=== PATIENT | female | born 1975 | race American Indian/Alaskan Native ===

== ENCOUNTER 2016-11-04 23:05 | Emergency (ER) | payer OTHER ==
--- NOTE | 2016-11-05 08:55 | Emergency Department Report ---
HPI - General Chief Complaint: Extremity Injury, Lower Time Seen by Provider: 11/05/16 08:47 - HPI HPI: Chief complaint: Left leg pain HPI: Patient is a 41-year-old female who underwent a hysterectomy and salpingectomy in August of last year. Patient states she started back at work on Saturday and has been having left lower leg pain and swelling for the last week. Patient denies any chest pain or shortness breath or previous history of a blood clot. Mode of arrival: private car Source: Patient Began: One week ago Duration: Continuous Context: See above Quality: Dull Severity: 10 out of 10 Improved with: Nothing Worsened with: Standing Associated signs and symptoms: Pain and swelling. No fever or erythema ED Past Medical Hx - Past Medical History Previous Medical History?: Yes Hx Headaches / Migraines: Yes (migraines) Hx Asthma: Yes (last neb 2 weeks ago) - Surgical History Additional Surgical History: Left foot sugery January-Torn Tendon, hysterectomy - Social History Smoking Status: Former Smoker - Medications Home Medications: Home Medications Medication Instructions Recorded Confirmed Last Taken Type ALBUTEROL NEB's [Proventil] 2.5 mg IH TID PRN 09/07/16 09/12/16 09/12/16 05:00 History Topiramate [Topamax] 100 mg PO DAILY 09/07/16 09/12/16 09/11/16 History Ferrous Sulfate [Feosol 325 MG tab] 325 mg PO BID #60 tablet 09/12/16 Unknown Rx Ibuprofen [Motrin 800 MG tab] 800 mg PO Q6H PRN #30 tablet 09/12/16 Unknown Rx oxyCODONE /ACETAMINOPHEN [Percocet 1 - 2 tab PO Q4H PRN #30 tablet 09/12/16 Unknown Rx 5/325 mg] traMADol [Ultram 50 MG tab] 50 mg PO Q6HR PRN #14 tablet 11/05/16 Unknown Rx ED Review of Systems ROS: Stated complaint: L LEG PAIN Other details as noted in HPI ROS Constitutional: No fever ENT: No uri symptoms Cardiovascular: No chest pain Respiratory: No sob or cough GI: No nausea vomiting or diarrhea : No dysuria frequency or urgency, Skin: No rash Neuro: No focal weakness or numbness Psych: No depression Lazaro/lymph: See HPI Physical Exam - Physical Exam Vital Signs: Vital Signs 11/05/16 01:47 Temperature 98.5 F Pulse Rate 84 Respiratory 18 Rate Blood Pressure 139/97 O2 Sat by Pulse 100 Oximetry Physical Exam: GENERAL: The patient is well-developed well-nourished . HEENT: Normocephalic. Atraumatic. Extraocular motions are intact. Patient has moist mucous membranes. NECK: Normal inspection CHEST/LUNGS: Clear to auscultation. There is no respiratory distress noted. HEART/CARDIOVASCULAR: Regular. There is no tachycardia. There is no gallop rub or murmur. ABDOMEN: Abdomen is soft, nontender. Patient has normal bowel sounds. There is no abdominal distention. SKIN: There is no rash. There is no edema. There is no diaphoresis. There is no erythema. NEURO: The patient is awake, alert, and oriented. The patient is cooperative. The patient has no focal neurologic deficits. The patient has normal speech. MUSCULOSKELETAL: There is tenderness and swelling to the left lower extremity. There is no limitation range of motion. There is no evidence of acute injury. ED Course Vital Signs 11/05/16 01:47 Temperature 98.5 F Pulse Rate 84 Respiratory 18 Rate Blood Pressure 139/97 O2 Sat by Pulse 100 Oximetry ED Medical Decision Making - Radiology Data Radiology results: report reviewed (Doppler left lower extremity shows no signs of DVT.) Critical care attestation.: If time is entered above; I have spent that time in minutes in the direct care of this critically ill patient, excluding procedure time. ED Disposition Clinical Impression: Left leg pain Disposition: DISCHARGED TO HOME OR SELFCARE Is pt being admited?: No Does the pt Need Aspirin: No Condition: Stable Instructions: Leg Edema (ED) Additional Instructions: Recommend wearing support hose when standing on her feet for long periods of time and keep your feet. Follow-up with your primary care doctor if pain and swelling persist as she may need a repeat ultrasound if the pain and swelling persists. Prescriptions: traMADol [Ultram 50 MG tab] 50 mg PO Q6HR PRN #14 tablet PRN Reason: Pain Referrals: PRIMARY CARE, [Primary Care Provider] - 3-5 Days Time of Disposition: 09:38
[2016-11-05 09:50] VITALS: BP 114/63
--- NOTE | 2016-11-06 09:42 | Vascular Lab Report ---
Left Lower Extremity Venous Duplex Study: Reason for Exam: Left leg pain. Comments on the Right: A limited duplex study was done of the proximal veins of the right lower extremity. All veins visualized are freely compressible without evidence of internal echogenicity. Flow is spontaneous and phasic throughout. No evidence of acute or chronic thrombus is seen in any of the vessels visualized. Comments on the Left: All veins visualized are freely compressible without evidence of internal echogenicity. Flow is spontaneous and phasic throughout. No evidence of acute or chronic thrombus is seen in any of the vessels visualized. Impression: No evidence of acute or chronic deep venous thrombosis in the left lower extremity.
== END 2016-11-05 10:00 | disposition home or self-care (01) ==
LOC: ED 23:05
DX: M79.605 Pain in left leg (principal); G43.909 Migraine, unspecified, not intractable, without status migrainosus; J45.909 Unspecified asthma, uncomplicated; Z87.891 Personal history of nicotine dependence

== ENCOUNTER 2017-02-20 11:03 | Outpatient (CLI) | payer OTHER ==
--- NOTE | 2017-02-20 12:58 | XRay Report ---
LEFT HIP 2 VIEWS: 02/20/17 11:03:00 CLINICAL: Left hip pain. FINDINGS: Bilateral superolateral joint space narrowing with superior acetabular eburnation and bilateral superolateral osteophytes. No fracture or dislocation. Normal femoral head contours. The pelvic bones and SI joints are intact. Normal soft tissues. IMPRESSION: Moderate bilateral hip osteoarthritis.
== END 2017-02-20 11:04 | disposition home or self-care (01) ==
LOC: SPVIMAG 11:03
PROVIDERS: ATTEND Internal Medicine
DX: M16.0 Bilateral primary osteoarthritis of hip (principal); M25.78 Osteophyte, vertebrae

== ENCOUNTER 2017-10-07 15:29 | Emergency (ER) | payer OTHER ==
[2017-10-07 15:38] VITALS: BP 130/81
[2017-10-07] MEDS ORDERED: MOTRIN PO ONE (16:48)
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
== END 2017-10-07 17:56 | disposition home or self-care (01) ==
LOC: ED 15:29
DX: S13.4XXA Sprain of ligaments of cervical spine, initial encounter (principal); G43.909 Migraine, unspecified, not intractable, without status migrainosus; Z88.0 Allergy status to penicillin; V89.2XXA Person injured in unspecified motor-vehicle accident, traffic, initial encounter; Y93.89 Activity, other specified; Y92.89 Other specified places as the place of occurrence of the external cause; Y99.8 Other external cause status
CPT/HCPCS: 99282

== ENCOUNTER 2017-10-18 09:19 | Emergency (ER) | payer SELFPAY ==
[2017-10-18] MEDS ORDERED: NORCO 5/325 PO ONE (11:12)
--- NOTE | 2017-10-18 11:43 | XRay Report ---
RIGHT SHOULDER, 3 VIEWS: HISTORY: right shoulder pain. Normal bone mineralization. No acute osseous injury or joint pathology is detected. The soft tissues are unremarkable. IMPRESSION: Right shoulder within normal limits.
--- NOTE | 2017-10-18 11:47 | Emergency Department Report ---
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) Improves With: none Worsens With: movement of extremity Context: other (lifting) Associated Symptoms: denies other symptoms - Related Data Previous Rx's Medication Instructions Recorded Last Taken Type Naproxen Sodium [Aleve TAB] 220 mg PO BID PRN #12 tablet 10/18/17 Unknown Rx traMADol [Ultram] 50 mg PO Q6HR PRN #10 tablet 10/18/17 Unknown Rx Allergies Allergy/AdvReac Type Severity Reaction Status Date / Time Penicillins Allergy Hives Verified 09/07/16 11:32 ED Review of Systems ROS: Stated complaint: R SHOULDER PAIN Other details as noted in HPI Comment: All other systems reviewed and negative Musculoskeletal: other (r shoulder pain p lifting pt at work yest) ED Past Medical Hx - Past Medical History Hx Hypertension: No Hx Heart Attack/AMI: No Hx Congestive Heart Failure: No Hx Diabetes: No Hx Renal Disease: No Hx Headaches / Migraines: Yes (migraines) Hx Seizures: No Hx Asthma: Yes (last neb 2 weeks ago) Hx COPD: No - Surgical History Additional Surgical History: Left foot sugery January-Torn Tendon, hysterectomy. RT SHOULDER 12/2016 - Social History Smoking Status: Never Smoker Substance Use Type: Alcohol - Medications Home Medications: Home Medications Medication Instructions Recorded Confirmed Last Taken Type Naproxen Sodium [Aleve TAB] 220 mg PO BID PRN #12 tablet 10/18/17 Unknown Rx traMADol [Ultram] 50 mg PO Q6HR PRN #10 tablet 10/18/17 Unknown Rx ED Physical Exam - General Limitations: Physical Limitation General appearance: alert - Head Head exam: Present: atraumatic - Eye Eye exam: Present: normal appearance, PERRL - ENT ENT exam: Present: mucous membranes moist - Neck Neck exam: Present: normal inspection - Respiratory Respiratory exam: Present: normal lung sounds bilaterally - Cardiovascular Cardiovascular Exam: Present: regular rate - GI/Abdominal GI/Abdominal exam: Present: soft - Rectal Rectal exam: Present: deferred - External exam: Present: normal external exam - Expanded Upper Extremity Exam Right Shoulder Exam: Present: full ROM (w pain zarina lateral; sp rotator cuff repair). Absent: tenderness, swelling, abrasion, laceration, ecchymosis, deformity, crepidus, dislocation, erythema, tenderness over AC joint Upper Arm exam: Present: normal inspection ED Course Vital Signs 10/18/17 10:27 Temperature 98.3 F Pulse Rate 79 Respiratory 20 Rate Blood Pressure 179/98 O2 Sat by Pulse 100 Oximetry - Reevaluation(s) Reevaluation #1: 10/18/17 11:58 to er w r shoulder pain sp shoulder repair lifting pt yest and has had pain since see exam xray noted med sling dc home w fu ortho ED Medical Decision Making - Radiology Data Radiology results: report reviewed, image reviewed - Medical Decision Making see note - Differential Diagnosis ro fx Critical care attestation.: If time is entered above; I have spent that time in minutes in the direct care of this critically ill patient, excluding procedure time. ED Disposition Clinical Impression: Shoulder strain Disposition: DC- TO HOME OR SELFCARE Is pt being admited?: No Does the pt Need Aspirin: No Condition: Stable Instructions: Shoulder Sprain (ED) Additional Instructions: sling and swath ice/heat alternate for comfort meds as ordered follow up ortho SABA bp slightly elevated today- monitor Referrals: PRIMARY CARE, [Primary Care Provider] - 3-5 Days MALIHA FANG MD [Staff Physician] - 3-5 Days Forms: Work/School Release Form(ED) Time of Disposition: 11:52
[2017-10-18 14:05] VITALS: BP 115/67
== END 2017-10-18 12:29 | disposition home or self-care (01) ==
LOC: ED 09:19
DX: S46.911A Strain of unspecified muscle, fascia and tendon at shoulder and upper arm level, right arm, initial encounter (principal); G43.909 Migraine, unspecified, not intractable, without status migrainosus; J45.909 Unspecified asthma, uncomplicated; X58.XXXA Exposure to other specified factors, initial encounter; Y93.89 Activity, other specified; Y99.8 Other external cause status; Y92.69 Other specified industrial and construction area as the place of occurrence of the external cause; Z98.890 Other specified postprocedural states; Z88.0 Allergy status to penicillin
CPT/HCPCS: 99284

== ENCOUNTER 2018-04-01 11:09 | Emergency (ER) | payer SELFPAY ==
[2018-04-01 11:15] VITALS: BP 133/74
--- NOTE | 2018-04-01 11:42 | Emergency Department Report ---
ED Extremity Problem HPI - General Chief complaint: Shoulder Injury Stated complaint: RIGHT SHOULDER PAIN Time Seen by Provider: 04/01/18 11:28 Source: patient Mode of arrival: Ambulatory Limitations: No Limitations - History of Present Illness Initial comments: Patient is a 43-year-old female who is presenting with right shoulder pain. Patient states this aching pain worse with movement. Patient denies any trauma. Patient has had a rotator cuff surgery in the past and states this feels similar to the pain she's had the past. Patient denies any fevers chills nausea vomiting or cough congestion at this time. Patient states the pain is 8 out of 10 in severity. - Related Data Previous Rx's Medication Instructions Recorded Last Taken Type Naproxen Sodium [Aleve TAB] 220 mg PO BID PRN #12 tablet 10/18/17 Unknown Rx traMADol [Ultram] 50 mg PO Q6HR PRN #10 tablet 10/18/17 Unknown Rx Ibuprofen [Motrin] 800 mg PO Q8HR PRN #20 tablet 04/01/18 Unknown Rx methOCARBAMOL [Robaxin TAB] 500 mg PO Q6H PRN #15 tablet 04/01/18 Unknown Rx traMADol [Ultram] 50 mg PO Q6HR PRN #12 tablet 04/01/18 Unknown Rx Allergies Allergy/AdvReac Type Severity Reaction Status Date / Time Penicillins Allergy Hives Verified 09/07/16 11:32 ED Review of Systems ROS: Stated complaint: RIGHT SHOULDER PAIN Other details as noted in HPI Comment: All other systems reviewed and negative ED Past Medical Hx - Past Medical History Hx Hypertension: No Hx Heart Attack/AMI: No Hx Congestive Heart Failure: No Hx Diabetes: No Hx Renal Disease: No Hx Headaches / Migraines: Yes (migraines) Hx Seizures: No Hx Asthma: Yes (last neb 2 weeks ago) Hx COPD: No - Surgical History Past Surgical History?: Yes Additional Surgical History: Left foot sugery January-Torn Tendon, hysterectomy. RT SHOULDER 12/2016 - Social History Smoking Status: Never Smoker Substance Use Type: None - Medications Home Medications: Home Medications Medication Instructions Recorded Confirmed Last Taken Type Naproxen Sodium [Aleve TAB] 220 mg PO BID PRN #12 tablet 10/18/17 Unknown Rx traMADol [Ultram] 50 mg PO Q6HR PRN #10 tablet 10/18/17 Unknown Rx Ibuprofen [Motrin] 800 mg PO Q8HR PRN #20 tablet 04/01/18 Unknown Rx methOCARBAMOL [Robaxin TAB] 500 mg PO Q6H PRN #15 tablet 04/01/18 Unknown Rx traMADol [Ultram] 50 mg PO Q6HR PRN #12 tablet 04/01/18 Unknown Rx ED Physical Exam - General Limitations: No Limitations General appearance: alert, in no apparent distress - Head Head exam: Present: atraumatic, normocephalic - Eye Eye exam: Present: normal appearance - ENT ENT exam: Present: mucous membranes moist - Neck Neck exam: Present: normal inspection - Respiratory Respiratory exam: Present: normal lung sounds bilaterally. Absent: respiratory distress - Cardiovascular Cardiovascular Exam: Present: regular rate, normal rhythm. Absent: systolic murmur, diastolic murmur, rubs, gallop - GI/Abdominal GI/Abdominal exam: Present: soft, normal bowel sounds - Extremities Exam Extremities exam: Present: normal inspection. Absent: full ROM (patient states that she is having trouble raising her right arm secondary to pain. There is no deltoid deformity. There is no warmth or redness to the skin.) - Back Exam Back exam: Present: normal inspection - Neurological Exam Neurological exam: Present: alert, oriented X3 - Psychiatric Psychiatric exam: Present: normal affect, normal mood - Skin Skin exam: Present: warm, dry, intact, normal color. Absent: rash ED Course Vital Signs 04/01/18 11:12 Temperature 98.7 F Pulse Rate 82 Respiratory 16 Rate Blood Pressure 133/74 O2 Sat by Pulse 99 Oximetry ED Medical Decision Making - Medical Decision Making Patient states that she's seen her orthopedic doctor for this problem and is told that she is supposed to be in pain. Patient states she would like referral for a second opinion. Patient also be given meds for symptomatic relief. Critical care attestation.: If time is entered above; I have spent that time in minutes in the direct care of this critically ill patient, excluding procedure time. ED Disposition Clinical Impression: Rotator cuff injury Qualifiers: Encounter type: subsequent encounter Laterality: right Qualified Code(s): S46.001D - Unspecified injury of muscle(s) and tendon(s) of the rotator cuff of right shoulder, subsequent encounter Disposition: DC- TO HOME OR SELFCARE Is pt being admited?: No Does the pt Need Aspirin: No Condition: Stable Instructions: Rotator Cuff Injury (ED) Referrals: MALIHA FANG MD [Staff Physician] - 3-5 Days
== END 2018-04-01 14:48 | disposition home or self-care (01) ==
LOC: ED 11:09
DX: S46.001A Unspecified injury of muscle(s) and tendon(s) of the rotator cuff of right shoulder, initial encounter (principal); Z98.890 Other specified postprocedural states; Z88.0 Allergy status to penicillin; X58.XXXA Exposure to other specified factors, initial encounter; Y93.89 Activity, other specified; Y92.89 Other specified places as the place of occurrence of the external cause; Y99.8 Other external cause status; G43.909 Migraine, unspecified, not intractable, without status migrainosus

== ENCOUNTER 2018-05-21 19:29 | Emergency (ER) | payer OTHER ==
[2018-05-21 20:15] VITALS: BP 174/87
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
== END 2018-05-22 01:20 | disposition home or self-care (01) ==
LOC: ED 19:29
DX: S16.1XXA Strain of muscle, fascia and tendon at neck level, initial encounter (principal); S39.012A Strain of muscle, fascia and tendon of lower back, initial encounter; G43.909 Migraine, unspecified, not intractable, without status migrainosus; J45.909 Unspecified asthma, uncomplicated; Z90.710 Acquired absence of both cervix and uterus; Z98.890 Other specified postprocedural states; Z88.0 Allergy status to penicillin; V87.7XXA Person injured in collision between other specified motor vehicles (traffic), initial encounter; Y93.89 Activity, other specified; Y99.8 Other external cause status; Y92.410 Unspecified street and highway as the place of occurrence of the external cause
CPT/HCPCS: 99282

== ENCOUNTER 2018-07-12 23:24 | Emergency (ER) | payer SELFPAY ==
[2018-07-13] MEDS ORDERED: MOTRIN PO ONE (00:40)
--- NOTE | 2018-07-13 03:08 | XRay Report ---
FINAL REPORT EXAM: XR SHOULDER 2+V LT HISTORY: left shoulder pain TECHNIQUE: 3 views of the left shoulder PRIORS: None. FINDINGS: The glenohumeral and acromioclavicular joints are normally aligned. The bones are normally mineralized. The soft tissues are unremarkable. IMPRESSION: Normal left shoulder.
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
[2018-07-13 04:05] VITALS: BP 134/78
== END 2018-07-13 04:05 | disposition home or self-care (01) ==
LOC: ED 23:24
DX: S46.912A Strain of unspecified muscle, fascia and tendon at shoulder and upper arm level, left arm, initial encounter (principal); G43.909 Migraine, unspecified, not intractable, without status migrainosus; J45.909 Unspecified asthma, uncomplicated; Z88.0 Allergy status to penicillin; X58.XXXA Exposure to other specified factors, initial encounter; Y93.89 Activity, other specified; Y92.89 Other specified places as the place of occurrence of the external cause; Y99.8 Other external cause status
CPT/HCPCS: 99283

== ENCOUNTER 2018-12-23 09:07 | Emergency (ER) | payer OTHER ==
[2018-12-23 09:16] VITALS: BP 142/73
[2018-12-23] MEDS ORDERED: TORADOL IM ONE (10:02)
[2018-12-23] MEDS ORDERED: ULTRAM PO ONE (10:02)
--- NOTE | 2018-12-23 10:07 | Emergency Department Report ---
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) Improves With: immobilization Worsens With: movement of extremity Context: other (lifting at work) Associated Symptoms: denies: weakness, numbness, neck pain, nausea/vomiting, heard/felt popping sensat Treatments Prior to Arrival: NSAIDS (no improvement with otc motrin) - Related Data Previous Rx's Medication Instructions Recorded Last Taken Type Naproxen Sodium [Aleve TAB] 220 mg PO BID PRN #12 tablet 10/18/17 Unknown Rx Ibuprofen [Motrin] 800 mg PO Q8HR PRN #20 tablet 04/01/18 Unknown Rx methOCARBAMOL [Robaxin TAB] 500 mg PO Q6H PRN #15 tablet 04/01/18 Unknown Rx traMADol [Ultram] 50 mg PO Q6HR PRN #12 tablet 04/01/18 Unknown Rx Cyclobenzaprine [Flexeril] 10 mg PO BID PRN #20 tablet 05/22/18 Unknown Rx Cyclobenzaprine [Flexeril] 10 mg PO BID PRN #20 tablet 07/13/18 Unknown Rx Menthol/Camphor [[place] 1 applicatio TP TID PRN #1 tube 07/13/18 Unknown Rx Ointment] Naproxen 500 mg PO BID PRN #30 tablet 07/13/18 Unknown Rx Menthol/Camphor [[place] 1 applic TP TID PRN #1 tube 12/23/18 Unknown Rx Ointment] Naproxen [Naprosyn TAB] 500 mg PO BID PRN #30 tablet 12/23/18 Unknown Rx traMADol [Ultram 50 MG tab] 50 mg PO Q6HR PRN #15 tablet 12/23/18 Unknown Rx Allergies Allergy/AdvReac Type Severity Reaction Status Date / Time Penicillins Allergy Hives Verified 09/07/16 11:32 ED Review of Systems ROS: Stated complaint: (R) SHOULDER PAIN Other details as noted in HPI Comment: All other systems reviewed and negative ED Past Medical Hx - Past Medical History Hx Hypertension: No Hx Heart Attack/AMI: No Hx Congestive Heart Failure: No Hx Diabetes: No Hx Renal Disease: No Hx Headaches / Migraines: Yes (migraines) Hx Seizures: No Hx Asthma: Yes (last neb 2 weeks ago) Hx COPD: No - Surgical History Additional Surgical History: Left foot sugery January-Torn Tendon, hysterectomy. RT SHOULDER 12/2016 - Social History Smoking Status: Never Smoker Substance Use Type: None - Medications Home Medications: Home Medications Medication Instructions Recorded Confirmed Last Taken Type Naproxen Sodium [Aleve TAB] 220 mg PO BID PRN #12 tablet 10/18/17 Unknown Rx Ibuprofen [Motrin] 800 mg PO Q8HR PRN #20 tablet 04/01/18 Unknown Rx methOCARBAMOL [Robaxin TAB] 500 mg PO Q6H PRN #15 tablet 04/01/18 Unknown Rx traMADol [Ultram] 50 mg PO Q6HR PRN #12 tablet 04/01/18 Unknown Rx Cyclobenzaprine [Flexeril] 10 mg PO BID PRN #20 tablet 05/22/18 Unknown Rx Cyclobenzaprine [Flexeril] 10 mg PO BID PRN #20 tablet 07/13/18 Unknown Rx Menthol/Camphor [[place] 1 applicatio TP TID PRN #1 tube 07/13/18 Unknown Rx Ointment] Naproxen 500 mg PO BID PRN #30 tablet 07/13/18 Unknown Rx Menthol/Camphor [[place] 1 applic TP TID PRN #1 tube 12/23/18 Unknown Rx Ointment] Naproxen [Naprosyn TAB] 500 mg PO BID PRN #30 tablet 12/23/18 Unknown Rx traMADol [Ultram 50 MG tab] 50 mg PO Q6HR PRN #15 tablet 12/23/18 Unknown Rx ED Physical Exam - General Limitations: No Limitations - Other Other exam information: General: No limitations, patient is alert in no acute distress Head exam: Atraumatic, normocephalic Eyes exam: Normal appearance, ENT: Moist mucous membrane, Neck exam: Normal inspection, full range of motion Respiratory exam: Clear to auscultation bilateral, no wheezes, rales, crackles Cardiovascular: Normal rate and rhythm Abdomen: Soft, nondistended, and nontender, with normal bowel sounds, no rebound, or guarding Extremity: Full range of motion passive and active without significant distress, normal inspection no deformity. Tenderness to right deltoid muscle extending to biceps and anterior shoulder area. No warmth or erythema Back: Normal Inspection, full range of motion, no tenderness Neurologic: Alert, oriented x3, cranial nerves intact, no motor or sensory deficit Psychiatric: normal affect, normal mood Skin: Warm, dry, intact ED Course Vital Signs 12/23/18 09:12 Temperature 97.9 F Pulse Rate 78 Respiratory 18 Rate Blood Pressure 142/73 O2 Sat by Pulse 99 Oximetry ED Medical Decision Making - Medical Decision Making Symptoms suggestive of shoulder strain. No deformity,+ full range of motion, and no trauma reported. Treated with Toradol and tramadol in ED Will be discharged with plans and follow-up - Differential Diagnosis arthritis, muscle strain, shoulder strain, bursitis Critical care attestation.: If time is entered above; I have spent that time in minutes in the direct care of this critically ill patient, excluding procedure time. ED Disposition Clinical Impression: Strain of right shoulder Disposition: - TO HOME OR SELFCARE Is pt being admited?: No Does the pt Need Aspirin: No Condition: Stable Instructions: Shoulder Sprain (ED) Additional Instructions: Take the medication as prescribed. Follow up with your doctor or the clinic/doctor provided. Return if symptoms worsen as indicated by your discharge instructions Prescriptions: Menthol/Camphor [[place] Ointment] 1 applic TP TID PRN #1 tube PRN Reason: pain Naproxen [Naprosyn TAB] 500 mg PO BID PRN #30 tablet PRN Reason: Pain, Moderate (4-6) traMADol [Ultram 50 MG tab] 50 mg PO Q6HR PRN #15 tablet PRN Reason: Pain , Severe (7-10) Referrals: PALMIRA DAMON MD [Primary Care Provider] - 3-5 Days MALIHA FANG MD [Staff Physician] - 3-5 Days (orthopedic doctor) Time of Disposition: 10:07
== END 2018-12-23 10:20 | disposition home or self-care (01) ==
LOC: ED 09:07
DX: S46.911A Strain of unspecified muscle, fascia and tendon at shoulder and upper arm level, right arm, initial encounter (principal); G43.909 Migraine, unspecified, not intractable, without status migrainosus; J45.909 Unspecified asthma, uncomplicated; Z90.710 Acquired absence of both cervix and uterus; Z79.899 Other long term (current) drug therapy; Z88.0 Allergy status to penicillin; X50.0XXA Overexertion from strenuous movement or load, initial encounter; Y93.89 Activity, other specified; Y92.69 Other specified industrial and construction area as the place of occurrence of the external cause; Y99.0 Civilian activity done for income or pay
CPT/HCPCS: 96372; 99282; J1885

== ENCOUNTER 2018-12-25 08:34 | Outpatient (CLI) | payer OTHER ==
--- NOTE | 2018-12-25 13:48 | Mammography Report ---
BILATERAL DIGITAL SCREENING MAMMOGRAM with CAD: 12/25/18 08:34:00 CLINICAL: Routine screening. COMPARISON:None. FINDINGS: The breasts are almost entirely fatty. No mass, architectural distortion or suspicious calcifications. IMPRESSION: No mammographic evidence of malignancy. BI-RADS CATEGORY: 1 - - Negative RECOMMENDATION: Routine mammographic screening in one year. COMMENT: Patient follow-up letters are generated by our [employer] application.
== END 2018-12-25 08:35 | disposition home or self-care (01) ==
LOC: MAMMO 08:34
PROVIDERS: ATTEND Nurse Practitioner
DX: Z12.31 Encounter for screening mammogram for malignant neoplasm of breast (principal); E66.01 Morbid (severe) obesity due to excess calories; Z87.891 Personal history of nicotine dependence; Z90.710 Acquired absence of both cervix and uterus
CPT/HCPCS: 77067

== ENCOUNTER 2019-04-06 08:02 | Emergency (ER) | payer SELFPAY ==
--- NOTE | 2019-04-06 08:40 | Emergency Department Report ---
ED Extremity Problem HPI - General Chief complaint: Extremity Problem,Nontraumatic Stated complaint: LFT LOWER LEG PAIN Time Seen by Provider: 04/06/19 08:33 Source: patient Mode of arrival: Ambulatory Limitations: No Limitations - History of Present Illness Initial comments: Patient is 44-year-old female, morbidly obese with no significant past medical history. Patient presented to the ER complaining of left leg pain mainly to the cough area started 5 days ago. Patient stated that she recently starts walking for exercise. Patient denied any recent immobilization. She denied any fever or chills. Patient denied any chest pain or shortness of breath. MD Complaint: extremity pain - Related Data Previous Rx's Medication Instructions Recorded Last Taken Type Naproxen Sodium [Aleve TAB] 220 mg PO BID PRN #12 tablet 10/18/17 Unknown Rx Ibuprofen [Motrin] 800 mg PO Q8HR PRN #20 tablet 04/01/18 Unknown Rx methOCARBAMOL [Robaxin TAB] 500 mg PO Q6H PRN #15 tablet 04/01/18 Unknown Rx traMADol [Ultram] 50 mg PO Q6HR PRN #12 tablet 04/01/18 Unknown Rx Cyclobenzaprine [Flexeril] 10 mg PO BID PRN #20 tablet 05/22/18 Unknown Rx Cyclobenzaprine [Flexeril] 10 mg PO BID PRN #20 tablet 07/13/18 Unknown Rx Menthol/Camphor [[place] 1 applicatio TP TID PRN #1 tube 07/13/18 Unknown Rx Ointment] Naproxen 500 mg PO BID PRN #30 tablet 07/13/18 Unknown Rx Menthol/Camphor [[place] 1 applic TP TID PRN #1 tube 12/23/18 Unknown Rx Ointment] Naproxen [Naprosyn TAB] 500 mg PO BID PRN #30 tablet 12/23/18 Unknown Rx traMADol [Ultram 50 MG tab] 50 mg PO Q6HR PRN #15 tablet 12/23/18 Unknown Rx Allergies Allergy/AdvReac Type Severity Reaction Status Date / Time Penicillins Allergy Hives Verified 09/07/16 11:32 ED Review of Systems ROS: Stated complaint: LFT LOWER LEG PAIN Other details as noted in HPI Comment: All other systems reviewed and negative Constitutional: denies: chills Respiratory: denies: cough, orthopnea, shortness of breath, SOB with exertion, SOB at rest Cardiovascular: denies: chest pain, palpitations Gastrointestinal: denies: abdominal pain, nausea, vomiting Musculoskeletal: myalgia. denies: back pain Neurological: denies: headache, weakness ED Past Medical Hx - Past Medical History Hx Hypertension: No Hx Heart Attack/AMI: No Hx Congestive Heart Failure: No Hx Diabetes: No Hx Renal Disease: No Hx Headaches / Migraines: Yes (migraines) Hx Seizures: No Hx Asthma: Yes (last neb 2 weeks ago) Hx COPD: No - Surgical History Past Surgical History?: Yes Additional Surgical History: Left foot sugery January-Torn Tendon, hysterectomy. RT SHOULDER 12/2016 - Social History Smoking Status: Never Smoker Substance Use Type: None - Medications Home Medications: Home Medications Medication Instructions Recorded Confirmed Last Taken Type Naproxen Sodium [Aleve TAB] 220 mg PO BID PRN #12 tablet 10/18/17 Unknown Rx Ibuprofen [Motrin] 800 mg PO Q8HR PRN #20 tablet 04/01/18 Unknown Rx methOCARBAMOL [Robaxin TAB] 500 mg PO Q6H PRN #15 tablet 04/01/18 Unknown Rx traMADol [Ultram] 50 mg PO Q6HR PRN #12 tablet 04/01/18 Unknown Rx Cyclobenzaprine [Flexeril] 10 mg PO BID PRN #20 tablet 05/22/18 Unknown Rx Cyclobenzaprine [Flexeril] 10 mg PO BID PRN #20 tablet 07/13/18 Unknown Rx Menthol/Camphor [[place] 1 applicatio TP TID PRN #1 tube 07/13/18 Unknown Rx Ointment] Naproxen 500 mg PO BID PRN #30 tablet 07/13/18 Unknown Rx Menthol/Camphor [[place] 1 applic TP TID PRN #1 tube 12/23/18 Unknown Rx Ointment] Naproxen [Naprosyn TAB] 500 mg PO BID PRN #30 tablet 12/23/18 Unknown Rx traMADol [Ultram 50 MG tab] 50 mg PO Q6HR PRN #15 tablet 12/23/18 Unknown Rx ED Physical Exam - General Limitations: No Limitations General appearance: alert, in no apparent distress - Head Head exam: Present: atraumatic, normocephalic, normal inspection - Eye Eye exam: Present: normal appearance - ENT ENT exam: Present: normal exam, normal orophraynx, mucous membranes moist - Neck Neck exam: Present: normal inspection. Absent: tenderness, meningismus - Respiratory Respiratory exam: Present: normal lung sounds bilaterally. Absent: respiratory distress, wheezes, rales, chest wall tenderness, accessory muscle use - Cardiovascular Cardiovascular Exam: Present: regular rate, normal heart sounds - GI/Abdominal GI/Abdominal exam: Present: soft, normal bowel sounds. Absent: distended, tenderness, guarding, rebound, rigid - Extremities Exam Extremities exam: Present: normal inspection, tenderness (left leg tenderness.), normal capillary refill, calf tenderness. Absent: full ROM, pedal edema - Back Exam Back exam: Present: normal inspection, full ROM. Absent: CVA tenderness (R), CVA tenderness (L) - Neurological Exam Neurological exam: Present: alert, oriented X3, CN II-XII intact, normal gait - Skin Skin exam: Present: warm, intact, normal color ED Medical Decision Making - Lab Data Result diagrams: 04/06/19 08:42 04/06/19 08:42 - Radiology Data Radiology results: report reviewed - Medical Decision Making Patient is 44-year-old female, morbidly obese with no significant past medical history. Patient presented to the ER complaining of left leg pain mainly to the cough area started 5 days ago. Patient stated that she recently starts walking for exercise. Patient denied any recent immobilization. She denied any fever or chills. Patient denied any chest pain or shortness of breath. Right tibia/fibular x-ray is negative for acute finding. Left lower extremity Doppler ultrasound is negative for DVT. Patient given a prescription for Naprosyn and advised to follow-up with her primary care physician in the next 2- 3 days and to return to the ER if symptoms are not improved. Critical care attestation.: If time is entered above; I have spent that time in minutes in the direct care of this critically ill patient, excluding procedure time. ED Disposition Clinical Impression: Left leg pain Disposition: DC-01 TO HOME OR SELFCARE Is pt being admited?: No Condition: Stable Instructions: Leg Sprain (ED) Referrals: PALMIRA DAMON MD [Primary Care Provider] - 3-5 Days
[2019-04-06 08:59] LABS: Basophils % (Auto) 0.7 % (0.0-1.8); Eosinophils # (Auto) 0.1 K/mm3 (0.0-0.4); Eosinophils % (Auto) 2.3 % (0.0-4.3); Hematocrit 37.6 % (30.3-42.9); Lymphocytes # (Auto) 2.4 K/mm3 (1.2-5.4); Lymphocytes % (Auto) 43.4 % (13.4-35.0); Mean Corpuscular HGB Conc 32 % (30-34); Mean Corpuscular Volume 79 fl (79-97); Monocytes # (Auto) 0.6 K/mm3 (0.0-0.8); Monocytes % (Auto) 10.3 % (0.0-7.3); Platelet Count 300 K/mm3 (140-440); Red Blood Count 4.73 M/mm3 (3.65-5.03); Red Cell Distribution Width 14.8 % (13.2-15.2)
[2019-04-06 09:10] LABS: BUN/Creatinine Ratio 21; Blood Urea Nitrogen 15 mg/dL (7-17); Calcium 8.8 mg/dL (8.4-10.2); Hemolysis Index 3
--- NOTE | 2019-04-06 09:22 | XRay Report ---
LEFT TIBIA/FIBULA: History: Left leg pain. AP and lateral views of the left tibia/fibula demonstrate normal mineralization and contours for this patient's age. No destructive changes are noted and the adjacent soft tissues are normal. There has been previous fusion of the subtalar joint with 2 orthopedic screws. Please correlate with history. IMPRESSION: Normal left tibia/fibula.
[2019-04-06 09:26] LABS: INR 1.1 (0.87-1.13); Partial Thromboplastin Time 38.5 Sec. (24.2-36.6)
--- NOTE | 2019-04-06 09:31 | Vascular Lab Report ---
PROCEDURE: VL VENOUS DUPLEX LE LT TECHNIQUE: Duplex Doppler sonography of the left lower extremity. Moss scale imaging with and withou t compression, spectral waveform analysis with and without augmentation, and color flow Doppler were employed. HISTORY: left leg pain and swelling COMPARISONS: None FINDINGS: Deep Venous Thrombus: None Superficial Venous Thrombus: None Venous valvular incompetence: None Soft tissue abnormality: Partially visualized fluid collection in the popliteal fossa that may repre sent a Oakley's cyst. IMPRESSION: No evidence of deep venous thrombosis. Partially visualized fluid collection in the popliteal fossa that may represent a Oakley's cyst. This document is electronically signed by Marisabel Kendall MD., April 06 2019 09:29:37 AM ET
[2019-04-06 10:35] VITALS: BP 156/91
== END 2019-04-06 10:33 | disposition home or self-care (01) ==
LOC: ED 08:02
DX: M79.605 Pain in left leg (principal); G43.909 Migraine, unspecified, not intractable, without status migrainosus; J45.909 Unspecified asthma, uncomplicated; Z90.710 Acquired absence of both cervix and uterus; Z79.899 Other long term (current) drug therapy; Z88.0 Allergy status to penicillin
CPT/HCPCS: 36415; 80048; 85025; 85610; 85730

== ENCOUNTER 2020-07-06 08:57 | Outpatient (CLI) | payer OTHER ==
--- NOTE | 2020-07-06 15:01 | XRay Report ---
CHEST 2 VIEWS INDICATION / CLINICAL INFORMATION: HEMOPTYSIS R04.2. COMPARISON: None available. FINDINGS: SUPPORT DEVICES: None. HEART / MEDIASTINUM: No significant abnormality. LUNGS / PLEURA: No significant pulmonary or pleural abnormality. No pneumothorax. ADDITIONAL FINDINGS: No significant additional findings. IMPRESSION: 1. No acute findings. Signer Name: Marty Sigala MD Signed: 07/06/2020 2:57 PM Workstation Name: [id number]
== END 2020-07-06 08:58 | disposition home or self-care (01) ==
LOC: SPVIMAG 08:57
PROVIDERS: ATTEND Internal Medicine
DX: R04.2 Hemoptysis (principal)
CPT/HCPCS: 71046

== ENCOUNTER 2020-07-20 13:49 | Outpatient (CLI) | payer OTHER ==
--- NOTE | 2020-07-20 17:52 | XRay Report ---
XR ankle 2V LT INDICATION: LEFT LATERAL ANKLE PAIN M25.572 COMPARISON: None. FINDINGS: Postoperative changes from talocalcaneal screw fixation. No abnormal lucency surrounds hardware. Hard solorzano is intact. No acute fracture. Normal alignment of the osseous structures. IMPRESSION: No acute adenopathy. Signer Name: Chidi Covarrubias MD Signed: 07/20/2020 5:47 PM Workstation Name: [id number]
== END 2020-07-20 13:50 | disposition home or self-care (01) ==
LOC: SPVIMAG 13:49
PROVIDERS: ATTEND Internal Medicine
DX: M25.572 Pain in left ankle and joints of left foot (principal); Z98.890 Other specified postprocedural states

== ENCOUNTER 2021-06-26 08:38 | Emergency (ER) | payer SELFPAY ==
[2021-06-26 09:03] VITALS: BP 173/90
--- NOTE | 2021-06-26 09:12 | Emergency Department Report ---
ED Extremity Problem HPI - General Chief complaint: Extremity Problem,Nontraumatic Stated complaint: RT FOOT SWOLLEN Time Seen by Provider: 06/26/21 09:09 Source: patient Mode of arrival: Ambulatory Limitations: No Limitations - History of Present Illness Initial comments: The patient was evaluated in the emergency department for symptoms described in the history of present illness. He/she was evaluated in the context of the global COVID-19 pandemic, which necessitated consideration that the patient might be at risk for infection with the virus that causes COVID-19. Institutional protocols and algorithms that pertain to the evaluation of patients at risk for COVID-19 are in a state of rapid change based on information released by regulatory bodies including the CDC and federal and state organizations. These policies and algorithms were followed during the patient's care in the emergency department. Please note that these policies, procedures and recommendations changed on a rapid basis. 46-year-old morbid obese -[place] female presents to the emergency room complaining of right ankle pain and swelling for 2 days. Patient does not recall injuring her ankle. She has taken ibuprofen. She denies any past medical history she does admit she has a hysterectomy. Onset/Timin -: days(s) Location: right, lower extremity History of Same: No -: Yes arthralgia Severity scale (0 -10): 8 Quality: aching, sharp Consistency: constant Improves with: nothing Worsens with: weight bearing, palpation - Related Data Previous Rx's Medication Instructions Recorded Last Taken Type Naproxen Sodium [Aleve TAB] 220 mg PO BID PRN #12 tablet 10/18/17 Unknown Rx methOCARBAMOL [Robaxin TAB] 500 mg PO Q6H PRN #15 tablet 04/01/18 Unknown Rx traMADoL [Ultram] 50 mg PO Q6HR PRN #12 tablet 04/01/18 Unknown Rx Cyclobenzaprine [Flexeril] 10 mg PO BID PRN #20 tablet 05/22/18 Unknown Rx Cyclobenzaprine [Flexeril] 10 mg PO BID PRN #20 tablet 07/13/18 Unknown Rx Menthol/Camphor [[place] 1 applicatio TP TID PRN #1 tube 07/13/18 Unknown Rx Ointment] Naproxen 500 mg PO BID PRN #30 tablet 07/13/18 Unknown Rx Menthol/Camphor [[place] 1 applic TP TID PRN #1 tube 12/23/18 Unknown Rx Ointment] Naproxen [Naprosyn TAB] 500 mg PO BID PRN #30 tablet 12/23/18 Unknown Rx traMADoL [Ultram 50 MG tab] 50 mg PO Q6HR PRN #15 tablet 12/23/18 Unknown Rx Naproxen [Naprosyn] 500 mg PO BID #14 tablet 04/06/19 Unknown Rx Ibuprofen [Motrin 800 MG tab] 800 mg PO Q8HR PRN #20 tablet 06/26/21 Unknown Rx Allergies Allergy/AdvReac Type Severity Reaction Status Date / Time Penicillins Allergy Hives Verified 09/07/16 11:32 ED Review of Systems ROS: Stated complaint: RT FOOT SWOLLEN Other details as noted in HPI Comment: All other systems reviewed and negative ED Past Medical Hx - Past Medical History Previous Medical History?: Yes Hx Hypertension: No Hx Heart Attack/AMI: No Hx Congestive Heart Failure: No Hx Diabetes: No Hx Renal Disease: No Hx Headaches / Migraines: Yes (migraines) Hx Seizures: No Hx Asthma: Yes (last neb 2 weeks ago) Hx COPD: No - Surgical History Past Surgical History?: Yes Additional Surgical History: Left foot sugery January-Torn Tendon, hysterectomy. RT SHOULDER 12/2016 - Social History Smoking Status: Never Smoker Substance Use Type: None - Medications Home Medications: Home Medications Medication Instructions Recorded Confirmed Last Taken Type Naproxen Sodium [Aleve TAB] 220 mg PO BID PRN #12 tablet 10/18/17 Unknown Rx methOCARBAMOL [Robaxin TAB] 500 mg PO Q6H PRN #15 tablet 04/01/18 Unknown Rx traMADoL [Ultram] 50 mg PO Q6HR PRN #12 tablet 04/01/18 Unknown Rx Cyclobenzaprine [Flexeril] 10 mg PO BID PRN #20 tablet 05/22/18 Unknown Rx Cyclobenzaprine [Flexeril] 10 mg PO BID PRN #20 tablet 07/13/18 Unknown Rx Menthol/Camphor [[place] 1 applicatio TP TID PRN #1 tube 07/13/18 Unknown Rx Ointment] Naproxen 500 mg PO BID PRN #30 tablet 07/13/18 Unknown Rx Menthol/Camphor [[place] 1 applic TP TID PRN #1 tube 12/23/18 Unknown Rx Ointment] Naproxen [Naprosyn TAB] 500 mg PO BID PRN #30 tablet 12/23/18 Unknown Rx traMADoL [Ultram 50 MG tab] 50 mg PO Q6HR PRN #15 tablet 12/23/18 Unknown Rx Naproxen [Naprosyn] 500 mg PO BID #14 tablet 04/06/19 Unknown Rx Ibuprofen [Motrin 800 MG tab] 800 mg PO Q8HR PRN #20 tablet 06/26/21 Unknown Rx ED Physical Exam - General Limitations: No Limitations General appearance: alert, in no apparent distress, obese - Head Head exam: Present: atraumatic, normocephalic - Eye Eye exam: Present: normal appearance - ENT ENT exam: Present: mucous membranes moist - Neck Neck exam: Present: full ROM - Respiratory Respiratory exam: Absent: accessory muscle use - Cardiovascular Cardiovascular Exam: Present: regular rate - Expanded Lower Extremity Exam Right Hip exam: Present: normal inspection, full ROM Upper Leg exam: Present: normal inspection, full ROM Knee exam: Present: normal inspection, full ROM Lower Leg exam: Present: normal inspection, full ROM Ankle exam: Present: full ROM, tenderness, swelling Foot/Toe exam: Present: normal inspection, full ROM. Absent: tenderness, swelling, deformity Neuro vascular tendon exam: Present: no vascular compromise Gait: Positive: observed and normal - Back Exam Back exam: Present: normal inspection - Neurological Exam Neurological exam: Present: alert, oriented X3, normal gait - Psychiatric Psychiatric exam: Present: normal affect, normal mood - Skin Skin exam: Present: warm, dry, intact, normal color. Absent: rash ED Course Vital Signs 06/26/21 06/26/21 09:02 09:03 Temperature 98.2 F Pulse Rate 87 Respiratory 18 Rate Blood Pressure 173/90 O2 Sat by Pulse 98 Oximetry ED Medical Decision Making - Radiology Data Radiology results: report reviewed [facility] [address] [place] [address] XRay Report Signed Patient: ROSALBA LINDA MR#: [id number] 50 : 1975 Acct:[id number] Age/Sex: 46 / F ADM Date: 06/26/21 Loc: ED Attending Dr: Ordering Physician: MOE ARMSTRONG Date of Service: 06/26/21 Procedure(s): XR ankle 2V RT Accession Number(s): [id number] cc: MOE ARMSTRONG Fluoro Time In Minutes: RIGHT ANKLE 2 VIEW(S) INDICATION / CLINICAL INFORMATION: ankle pain and swelling medial COMPARISON: None available. FINDINGS: BONES / JOINT(S): The tibiotalar joint is intact. There is an ossific density at the medial ankle which is nonspecific but favors accessory os navicular. No definite fracture seen. There are mild degenerative changes at the talonavicular joint. SOFT TISSUES: There is soft tissue swelling at the medial ankle, which may represent ligamentous injury. ADDITIONAL FINDINGS: None. Signer Name: Kyle Gray MD Signed: 06/26/2021 9:50 AM Workstation Name: [id number] Transcribed By: DB Dictated By: KYLE GRAY MD Electronically Authenticated By: KYLE GRAY MD Signed Date/Time: 06/26/21949 DD/ 5 TD/TT: - Medical Decision Making 46-year-old morbid obese -[place] female presents to the emergency room complaining of right ankle pain and swelling for 2 days. Patient does not recall injuring her ankle. She has taken ibuprofen. She denies any past medical history she does admit she has a hysterectomy. X-ray is negative for any acute fractures. Does show possible ligament injury. Patient be placed in a ankle stirrup and recommend to follow-up with orthopedics. Patient can take ibuprofen or naproxen for pain management. Critical care attestation.: If time is entered above; I have spent that time in minutes in the direct care of this critically ill patient, excluding procedure time. ED Disposition Clinical Impression: Pain and swelling of right ankle, Severely overweight Disposition: 01 HOME / SELF CARE / HOMELESS Is pt being admited?: No Does the pt Need Aspirin: No Condition: Stable Instructions: Joint Pain, [id number] Additional Instructions: X-ray is negative for any fractures or dislocations. Does show possible ligament injury. Please wear ankle stirrup avoid weightbearing and follow-up with orthopedic in the next 3 to 5 days. Pain medication as needed. Prescriptions: Ibuprofen [Motrin 800 MG tab] 800 mg PO Q8HR PRN #20 tablet PRN Reason: Pain Referrals: MALIHA FANG MD [Staff Physician] - 3-5 Days Forms: Work/School Release Form(ED) Time of Disposition: 10:05
--- NOTE | 2021-06-26 09:55 | XRay Report ---
RIGHT ANKLE 2 VIEW(S) INDICATION / CLINICAL INFORMATION: ankle pain and swelling medial COMPARISON: None available. FINDINGS: BONES / JOINT(S): The tibiotalar joint is intact. There is an ossific density at the medial ankle whi ch is nonspecific but favors accessory os navicular. No definite fracture seen. There are mild degene rative changes at the talonavicular joint. SOFT TISSUES: There is soft tissue swelling at the medial ankle, which may represent ligamentous inju ry. ADDITIONAL FINDINGS: None. Signer Name: Kyle Gray MD Signed: 06/26/2021 9:50 AM Workstation Name: [email or web address]
== END 2021-06-26 10:59 | disposition home or self-care (01) ==
LOC: ED 08:38
DX: M79.89 Other specified soft tissue disorders (principal); M25.571 Pain in right ankle and joints of right foot; E66.3 Overweight; G43.909 Migraine, unspecified, not intractable, without status migrainosus; J45.909 Unspecified asthma, uncomplicated; Z98.890 Other specified postprocedural states; Z79.899 Other long term (current) drug therapy; Z88.0 Allergy status to penicillin; Z90.710 Acquired absence of both cervix and uterus